=== PATIENT | female | born 1995 | race Caucasian/White ===

== ENCOUNTER 2018-01-26 07:54 | Emergency (ER) | payer BC, SELFPAY ==
[2018-01-26 07:59] VITALS: BP 120/81; PULSE 97; RESP 16; TEMP 37.1; O2SAT 97
--- NOTE | 2018-01-26 08:15 | W.ED.GENAD ---
Discharge Plan Disposition Patient Disposition: HOME Condition: Stable Discharge Details Chief Complaint: Nk/Back Pain Clinical Impression: Strain of left trapezius muscle, Muscle spasm ED Provider: Geoff Ocasio Home Meds and New Rx's Prescriptions: New cyclobenzaprine 10 mg tablet 10 mg PO TID PRN (Reason: muscle spasm) Qty: 20 RF: 0 Continue albuterol sulfate [ProAir HFA] 90 mcg/actuation Hfa Aerosol Inhaler 2 puff INHALATION QID PRNRF: 0 cetirizine 10 mg Tablet 10 mg PO DAILY RF: 0 Discharge Instructions Instructions: Muscle Spasm (ED) Additional Instructions: take 600mg ibuprofen and 1000mg tylenol every 6 hours for pain as needed. if you need additional pain relief take 1 cyclobenzaprine if you have severe worsening of pain, fevers, difficulty breathing or chest pain/pressure return to the emergency department Medical Decision Making 22 yo female who denies chronic medical problems comes in with left trapezius and left sided neck pain that started about an hour ago. She was in the shower and reaching for a bottle when this started. Denies falls and no fevers, chills, headache, vision changes, weakness. She has pain with palpation to the left trapezius and paraspinous muscles of the c spine, no midline pain, full rom of the neck though has pain when looking to the right, no midline pain, no meningismus. HAs 2+ radial and ulnar pulses so doubt dissection. No evidence to suggest cloth inspector infection. Will treat with muscle relaxers and nsaid as I suspect muscle spasm vs strain and reassess. pt feels mildly better after nsaids and muscle relaxer, still no meningismus and pain withp alpation and normal vascular exam. Do not feel imaging or lab work indicated, will prescribe muscle relaxers and d/c home Differential Diagnosis muscle spasm, strain, cervical radiculopathy HPI General Mode of arrival: ambulatory. Date/Time Provider Initiated Documentation: 01/26/18 07:55. Limitations to Documentation: no limitations. Information obtained by: patient. History of Present Illness 22 year old F presents to the emergency department with the chief complaint of left trapezius and neck pain, described as moderate, with intensity rated at 6. Quality is described as aching, and is localized to the left. Patient started experiencing this hour(s) (1) and it has been constant. No relieving factors improve symptom(s), No exacerbating factors reported . Patient notes no other symptoms.. Patient did receive the following treatments prior to arrival, none Related Data Home Medications Medication Instructions Recorded Confirmed albuterol sulfate [ProAir HFA] 2 puff INHALATION QID PRN 01/26/18 01/26/18 cetirizine 10 mg PO DAILY 01/26/18 01/26/18 cyclobenzaprine 10 mg PO TID PRN #20 tab 01/26/18 Previous Rx's Medication Instructions Recorded cyclobenzaprine 10 mg PO TID PRN #20 tab 01/26/18 Allergies Allergy/AdvReac Type Severity Reaction Status Date / Time No Known Allergies Allergy Unverified 01/26/18 08:04 General Stated Complaint: Nk/Back Pain ZIA: 4 Review of Systems Review of Systems All systems reviewed & are unremarkable except as noted in HPI and below Constitutional Denies chills, Denies fever(s) and Denies weakness ENT Denies change in voice Cardiovascular Denies chest pain and Denies dyspnea Respiratory Denies dyspnea Gastrointestinal Denies abdominal pain, Denies nausea and Denies vomiting Genitourinary Denies dysuria Musculoskeletal Denies joint swelling Neurologic Denies weakness PFSH Social History Smoking/Tobacco Use Status: Never Exam Const General: no acute distress Orientation: alert HENMT Head: normal to inspection Ears: external ears normal General nose exam: external nose normal Mouth: moist mucous membranes Eyes General: appearance normal, both eyes and all related structures Neck Neck: normal visual inspection Resp Effort & Inspection: normal respiratory effort and able to speak in complete sentences Cardio Rate: regular rate Skin General skin exam: no rashes or lesions noted Neuro General: alert and oriented x3 Extrem General: normal to inspection Psych Mental Status: mental status grossly normal Course Vital Signs Temperature 37.1 C 01/26/18 07:59 Pulse 97 H 01/26/18 07:59 Respiratory Rate 16 01/26/18 07:59 Blood Pressure 120/81 01/26/18 07:59 Pulse Oximetry 97 01/26/18 07:59 Temperature 37.1 C 01/26/18 07:59 Temperature Source Temporal Artery Scan 01/26/18 07:59 Pulse 97 H 01/26/18 07:59 Respiratory Rate 16 01/26/18 07:59 Respiratory Effort Non-Labored 01/26/18 08:01 Blood Pressure 120/81 01/26/18 07:59 Blood Pressure Position Sitting 01/26/18 07:59 Pulse Oximetry 97 01/26/18 07:59 Oxygen Delivery Method Room Air 01/26/18 07:59 Oxygen Flow Rate 0 01/26/18 07:59 Pain Level 6 01/26/18 08:03
[2018-01-26] MEDS: Cyclobenzaprine 10 MG TAB PO (08:18)
[2018-01-26] MEDS: Ibuprofen 600 MG TAB PO (08:18)
--- NOTE | 2018-01-26 08:18 | ED.GENADUL_ITS ---
Discharge Plan Disposition Patient Disposition: HOME Condition: Stable Discharge Details Chief Complaint: Nk/Back Pain Clinical Impression: Strain of left trapezius muscle, Muscle spasm ED Provider: Geoff Ocasio Home Meds and New Rx's Prescriptions: New cyclobenzaprine 10 mg tablet 10 mg PO TID PRN (Reason: muscle spasm) Qty: 20 RF: 0 Continue albuterol sulfate [ProAir HFA] 90 mcg/actuation Hfa Aerosol Inhaler 2 puff INHALATION QID PRNRF: 0 cetirizine 10 mg Tablet 10 mg PO DAILY RF: 0 Discharge Instructions Instructions: Muscle Spasm (ED) Additional Instructions: take 600mg ibuprofen and 1000mg tylenol every 6 hours for pain as needed. if you need additional pain relief take 1 cyclobenzaprine if you have severe worsening of pain, fevers, difficulty breathing or chest pain /pressure return to the emergency department Medical Decision Making 22 yo female who denies chronic medical problems comes in with left trapezius and left sided neck pain that started about an hour ago. She was in the shower and reaching for a bottle when this started. Denies falls and no fevers, chills , headache, vision changes, weakness. She has pain with palpation to the left trapezius and paraspinous muscles of the c spine, no midline pain, full rom of the neck though has pain when looking to the right, no midline pain, no meningismus. HAs 2+ radial and ulnar pulses so doubt dissection. No evidence to suggest research food technologist infection. Will treat with muscle relaxers and nsaid as I suspect muscle spasm vs strain and reassess. pt feels mildly better after nsaids and muscle relaxer, still no meningismus and pain withp alpation and normal vascular exam. Do not feel imaging or lab work indicated, will prescribe muscle relaxers and d/c home Differential Diagnosis muscle spasm, strain, cervical radiculopathy HPI General Mode of arrival: ambulatory . Date/Time Provider Initiated Documentation: 01/26/18 07:55 . Limitations to Documentation: no limitations . Information obtained by: patient . History of Present Illness 22 year old F presents to the emergency department with the chief complaint of left trapezius and neck pain, described as moderate, with intensity rated at 6. Quality is described as aching, and is localized to the left. Patient started experiencing this hour(s) (1) and it has been constant. No relieving factors improve symptom(s), No exacerbating factors reported . Patient notes no other symptoms.. Patient did receive the following treatments prior to arrival, none Related Data Home Medications Medication Instructions Recorded Confirmed albuterol sulfate [ProAir HFA] 2 puff INHALATION QID PRN 01/26/18 01/26/18 cetirizine 10 mg PO DAILY 01/26/18 01/26/18 cyclobenzaprine 10 mg PO TID PRN #20 tab 01/26/18 Previous Rx's Medication Instructions Recorded cyclobenzaprine 10 mg PO TID PRN #20 tab 01/26/18 Allergies Allergy/AdvReac Type Severity Reaction Status Date / Time No Known Allergies Allergy Unverified 01/26/18 08:04 General Stated Complaint: Nk/Back Pain ZIA: 4 Review of Systems Review of Systems All systems reviewed & are unremarkable except as noted in HPI and below Constitutional Denies chills, Denies fever(s) and Denies weakness ENT Denies change in voice Cardiovascular Denies chest pain and Denies dyspnea Respiratory Denies dyspnea Gastrointestinal Denies abdominal pain, Denies nausea and Denies vomiting Genitourinary Denies dysuria Musculoskeletal Denies joint swelling Neurologic Denies weakness PFSH Social History Smoking/Tobacco Use Status: Never Exam Const General: no acute distress Orientation: alert HENMT Head: normal to inspection Ears: external ears normal General nose exam: external nose normal Mouth: moist mucous membranes Eyes General: appearance normal, both eyes and all related structures Neck Neck: normal visual inspection Resp Effort & Inspection: normal respiratory effort and able to speak in complete sentences Cardio Rate: regular rate Skin General skin exam: no rashes or lesions noted Neuro General: alert and oriented x3 Extrem General: normal to inspection Psych Mental Status: mental status grossly normal Course Vital Signs Temperature 37.1 C 01/26/18 07:59 Pulse 97 H 01/26/18 07:59 Respiratory Rate 16 01/26/18 07:59 Blood Pressure 120/81 01/26/18 07:59 Pulse Oximetry 97 01/26/18 07:59 Temperature 37.1 C 01/26/18 07:59 Temperature Source Temporal Artery Scan 01/26/18 07:59 Pulse 97 H 01/26/18 07:59 Respiratory Rate 16 01/26/18 07:59 Respiratory Effort Non-Labored 01/26/18 08:01 Blood Pressure 120/81 01/26/18 07:59 Blood Pressure Position Sitting 01/26/18 07:59 Pulse Oximetry 97 01/26/18 07:59 Oxygen Delivery Method Room Air 01/26/18 07:59 Oxygen Flow Rate 0 01/26/18 07:59 Pain Level 6 01/26/18 08:03
[2018-01-26 09:29] VITALS: BP 112/80; PULSE 78; RESP 18; TEMP 36.8; O2SAT 96
== END 2018-01-26 09:27 | disposition home or self-care (01) ==
PROVIDERS: Emergency Provider Emergency Medicine
DX: S16.1XXA Strain of muscle, fascia and tendon at neck level, initial encounter (principal); M62.838 Other muscle spasm; X50.9XXA Other and unspecified overexertion or strenuous movements or postures, initial encounter
CPT/HCPCS: 99283